=== PATIENT | female | born 1970 | race Hispanic/Latino ===

== ENCOUNTER 2016-11-15 12:10 | Emergency (ER) | payer BC, SELFPAY ==
[2016-11-15 12:46] LABS: #Eosinphils 0.1 thou/uL (0.0-0.7); #Lymphocytes 2.4 thou/uL (1.20-3.40); #Monocytes 0.6 thou/uL (0.11-0.59); #Neutrophils 5.9 thou/uL (1.40-6.50); %Basophils 0.3 % (0.0-1.0); %Eosinophils 1.2 % (0.0-10.0); %Lymphocytes 26.9 % (21.0-51.0); %Monocytes 6.4 % (0.0-10.0); Hematocrit 43.8 % (36.0-47.0); Mean Platelet Volume 6.6 fL (7.4-10.4); Red Blood Cell (RBC) Count 4.77 mill/uL (4.20-5.40); White Blood Cell (WBC) Count 9.1 thou/uL (4.8-10.8)
[2016-11-15] MEDS ORDERED: Ondansetron HCl/PF 4 MG/2 ML Vial ONE (12:55)
[2016-11-15 13:13] LABS: ALT (SGPT) 44 U/L (8-55); AST (SGOT) 30 U/L (5-34); Alkaline Phosphatase 178 U/L (40-150); Anion Gap 14 mmol/L (10-20); BUN (Urea Nitrogen) 13 mg/dL (7.0-18.7); Bilirubin, Total 0.5 mg/dL (0.2-1.2); CK (CPK) 55 U/L (29-168); Calc. Creatinine Clearance 0 mL/min (70-130); Calcium 9.8 mg/dL (7.8-10.44); Carbon Dioxide 20 mmol/L (22-29); Chloride 105 mmol/L (98-107); Estimated GFR-MDRD 84; Globulin 4.4 g/dL (2.4-3.5); Lipase 26 U/L (8-78); Protein, Total 8.4 g/dL (6.0-8.3)
== END 2016-11-15 13:43 | disposition home or self-care (01) ==
LOC: ERS 12:10
DX: K52.9 Noninfective gastroenteritis and colitis, unspecified (principal); E86.0 Dehydration; J45.909 Unspecified asthma, uncomplicated
CPT/HCPCS: 36415; 80053; 82550; 83690; 85025; 96361; 96374; J2405

== ENCOUNTER 2017-03-13 19:28 | Emergency (ER) | payer BC ==
--- NOTE | 2017-03-13 21:58 | RAD ---
TWO VIEWS CHEST 03/13/17 PROVIDED CLINICAL HISTORY: Cough. FINDINGS: Comparison 03/10/08. The cardiac and mediastinal silhouette is within normal limits. No focal consolidation, pleural fluid or pneumothorax apparent. IMPRESSION: No evidence for an acute cardiopulmonary process. POS: [facility]
== END 2017-03-13 21:57 | disposition home or self-care (01) ==
LOC: ERS 19:28
DX: J06.9 Acute upper respiratory infection, unspecified (principal); J45.909 Unspecified asthma, uncomplicated; F17.210 Nicotine dependence, cigarettes, uncomplicated
CPT/HCPCS: 71046; 94640; J7620

== ENCOUNTER 2017-06-27 23:22 | Emergency (ER) | payer BC ==
[2017-06-27] MEDS ORDERED: Ondansetron ODT 4 MG TAB ONE (23:57)
[2017-06-28] MEDS ORDERED: Azithromycin 250 MG TAB ONE (00:18)
== END 2017-06-28 00:35 | disposition home or self-care (01) ==
LOC: ERS 23:22
DX: R11.2 Nausea with vomiting, unspecified (principal); R19.7 Diarrhea, unspecified; J45.909 Unspecified asthma, uncomplicated; F17.210 Nicotine dependence, cigarettes, uncomplicated; Z79.899 Other long term (current) drug therapy
CPT/HCPCS: 99283; Q0162

== ENCOUNTER 2018-04-19 09:47 | Observation (INO) | payer BC ==
[2018-04-19 10:31] LABS: #Eosinphils 0.1 thou/uL (0.0-0.7); #Lymphocytes 2.7 thou/uL (1.20-3.40); #Monocytes 0.3 thou/uL (0.11-0.59); #Neutrophils 4.3 thou/uL (1.40-6.50); %Basophils 0.3 % (0.0-1.0); %Eosinophils 1.4 % (0.0-10.0); %Lymphocytes 35.8 % (21.0-51.0); %Monocytes 4.4 % (0.0-10.0); %Neutrophils 58.1 % (42.0-75.0); Hemoglobin 13.4 g/dL (12.0-16.0); Mean Corpuscular HGB CONC 33.9 g/dL (32.0-36.0); Mean Corpuscular Hemoglobin 29.9 pg (27.0-31.0); Mean Corpuscular Volume 88.3 fL (78.0-98.0); Mean Platelet Volume 7.9 fL (7.4-10.4); Platelet Count 256 thou/uL (130-400); Red Blood Cell (RBC) Count 4.47 mill/uL (4.20-5.40); White Blood Cell (WBC) Count 7.4 thou/uL (4.8-10.8)
[2018-04-19 10:59] LABS: ALT (SGPT) 21 U/L (8-55); AST (SGOT) 27 U/L (5-34); Albumin 3.5 g/dL (3.5-5.0); Alkaline Phosphatase 91 U/L (40-150); Anion Gap 15 mmol/L (10-20); BUN (Urea Nitrogen) 16 mg/dL (7.0-18.7); Bilirubin, Total 0.2 mg/dL (0.2-1.2); Calc. Creatinine Clearance 0 mL/min (70-130); Calcium 8.8 mg/dL (7.8-10.44); Carbon Dioxide 18 mmol/L (22-29); Chloride 110 mmol/L (98-107); Estimated GFR-MDRD Greater than 90; Globulin 3.3 g/dL (2.4-3.5); Glucose 107 mg/dL (70-105); Potassium 4.6 mmol/L (3.5-5.1); Protein, Total 6.8 g/dL (6.0-8.3); Sodium 138 mmol/L (136-145)
[2018-04-19] MEDS ORDERED: Aspirin 325 MG TAB ONE (11:01)
[2018-04-19] MEDS ORDERED: Nitroglycerin 0.4 MG TAB 1 EACH ONE (11:01)
--- NOTE | 2018-04-19 11:01 | RAD ---
PORTABLE CHEST: Date: 04/19/18 HISTORY: Chest pain and pressure. FINDINGS: Lungs appear clear. No infiltrate or vascular congestion. Heart and mediastinum unremarkable. IMPRESSION: No acute findings. POS: [facility]
[2018-04-19] MEDS ORDERED: Acetaminophen 500 MG TAB ONE (12:40)
[2018-04-19] MEDS ORDERED: Enoxaparin Sodium 40 MG/0.4 ML SYRINGE SC SCH (15:00)
[2018-04-19 15:26] LABS: Troponin I Less than 0.010 ng/mL (< 0.028)
[2018-04-19 15:46] LABS: Hemoglobin A1c 5.7 % (4.0-6.0)
[2018-04-19] MEDS ORDERED: Nitroglycerin 0.4 MG TAB (25 Tab Bottle) SL PRN (17:31)
[2018-04-19] MEDS ORDERED: Acetaminophen 500 MG TAB PO PRN (17:31)
[2018-04-19] MEDS ORDERED: Ondansetron PF 4 MG/2 ML Vial IVP PRN (17:31)
[2018-04-19] MEDS ORDERED: HumaLOG 300 UNITS/3 ML VIAL SC PRN (17:33)
[2018-04-19] MEDS ORDERED: Dextrose 5% in Water 1,000 ML IV PRN (17:33)
[2018-04-19] MEDS ORDERED: Dextrose 50% Abboject 50 ML SYRINGE SLOW IVP PRN (17:33)
[2018-04-19 17:58] VITALS: BMI 30.7
[2018-04-19 18:42] LABS: Troponin I Less than 0.010 ng/mL (< 0.028)
[2018-04-19] MEDS: Pregabalin 75 MG CAP PO SCH (19:48)
[2018-04-19] MEDS: Pregabalin 50 MG CAP PO SCH (19:49)
--- NOTE | 2018-04-19 21:56 | HP ---
CHIEF COMPLAINT: Chest pressure. HISTORY OF PRESENT ILLNESS: The patient is a pleasant 47-year-old female with past medical history significant for type 2 diabetes mellitus, hyperlipidemia, peripheral neuropathy, tobacco abuse with one half pack per day smoking habit, and family history of coronary artery disease, who presented to the hospital with complaints of chest pressure that began earlier today when she was at work. The patient works at [employer], and was weighing 10-pound bags of chicken when her chest pressure began. She describes the sensation as a "sandbag sitting on my chest." She did have some associated shortness of breath, but denies any nausea, diaphoresis, dizziness, or palpitations. The pressure did not subside, and so she went to the emergency room for further workup and evaluation. On arrival, the patient was given sublingual nitroglycerin, which did relive her chest discomfort. Her EKG showed normal sinus rhythm. No ischemic ST or T-wave changes, and ventricular rate of 79 beats per minute. Her chest x-ray shows no infiltrate or vascular congestion, heart and mediastinum unremarkable. She is currently resting comfortably in the ER. She has had no prior cardiac workup up until this point. PAST MEDICAL HISTORY: As mentioned, type 2 diabetes mellitus, hyperlipidemia, and peripheral neuropathy. PAST SURGICAL HISTORY: Cholecystectomy, partial hysterectomy, and tubal ligation. ALLERGIES: STADOL AND VISTARIL. HOME MEDICATIONS: 1. 300 mg capsule Lyrica, one capsule p.o. b.i.d. 2. Lyrica 50 mg capsule, one capsule p.o. b.i.d. 3. Metformin extended release 500 mg tablet one p.o. b.i.d. 4. Flonase 50 mcg nasal spray one daily. 5. Zyrtec 10 mg capsule one per day. 6. Zofran ODT 4 mg orally 1 to 2 tablets every 6 hours p.r.n. SOCIAL HISTORY: The patient smokes one half pack per day of cigarettes. She denies any alcohol or illicit drug use. She has 2 grown children and grandchildren who live nearby. She works at [employer]. FAMILY HISTORY: Positive for triple bypass surgery in her father. CODE STATUS: Full code. REVIEW OF SYSTEMS: CONSTITUTIONAL: Negative for fever, chills, and weight loss. EYES: Negative for injury, pain, redness, and discharge. ENT: Positive for rhinorrhea. Negative for cough. NECK: Negative for lymphadenopathy. CARDIOVASCULAR: As above. Positive for chest pain. Negative for palpitations, dizziness. RESPIRATORY: Negative for chronic cough or wheezing. ABDOMEN/GASTROINTESTINAL: Negative for abdominal pain, nausea, vomiting, diarrhea, or constipation. Negative for any blood in the stool. BACK: Negative for injury and pain. SKIN: Negative for rash. EXTREMITIES: Negative for any swelling. Positive for neuropathy. PHYSICAL EXAMINATION: VITAL SIGNS: Blood pressure 110/72, pulse equals 90, respirations 17, temperature 98.4, and O2 saturation 99% on room air. GENERAL: This is a woman who appears her stated age, resting comfortably in the ER, currently in no acute distress. HEAD AND FACE: Normocephalic and atraumatic. ENT: Positive for poor dentition. No nasal discharge. Mucous membranes are moist. NECK: No JVD. No carotid bruits. No lymphadenopathy. RESPIRATORY: Regular respiratory rate and pattern. Overall, clear to auscultation bilaterally. CARDIOVASCULAR: S1 and S2. Regular rate and rhythm. No appreciable murmurs, rubs, or gallops. ABDOMEN: Soft and nontender. Normal bowel sounds. SKIN: Warm and dry without evidence of any rash. NEUROLOGIC: Nonfocal. LABORATORY DATA: Hemoglobin 13.4, hematocrit 39.5, white blood cell 7.4. Sodium 138, chloride 110, potassium 4.6. BUN 16, creatinine 0.68, and glucose 107. LFTs within normal limits. First troponin is negative. ASSESSMENT: 1. Chest pain, concerning for angina in a patient with numerous risk factors including hyperlipidemia, type 2 diabetes mellitus, family history, and tobacco abuse. 2. Type 2 diabetes mellitus. 3. Hyperlipidemia. 4. Diabetic peripheral neuropathy. 5. Tobacco abuse. PLAN: Given the patient's risk factors and her HEART score of 4, we will admit for observation and ACS rule out. We will perform Cardiolite stress test in-house. We will obtain fasting lipid panel in the morning. We will also obtain an A1c. We will start baby aspirin 81 mg daily. Further recommendations based on hospital course. Job ID: [id number]
[2018-04-20] MEDS: Pregabalin 75 MG CAP PO SCH (08:08)
[2018-04-20] MEDS: Pregabalin 50 MG CAP PO SCH (08:09)
[2018-04-20] MEDS ORDERED: Aspirin 81 mg Enteric Coated Tablet PO SCH (09:00)
[2018-04-20] MEDS ORDERED: Regadenoson 0.4 MG/5 ML SYRINGE ONE (10:19)
[2018-04-20 11:51] VITALS: TEMP 97.9
[2018-04-20 16:42] VITALS: BP 111/63
--- NOTE | 2018-04-20 18:11 | NM ---
RADIONUCLIDE STRESS AND REST MYOCARDIAL PERFUSION SCAN WITH CT ATTENUATION CORRECTION AND SPECT IMAGI NG LEFT VENTRICULAR WALL MOTION EVALUATION AND EJECTION FRACTION 04/20/18 HISTORY: Chest pain. FINDINGS: Micheal protocol. Total test time 7:07. Maximum heart rate 116 beats per minute. Heterogeneous uptake of radiotracer throughout the left ventricular myocardium. No focal perfusion de fect or reversibility. QGS analysis of gated SPECT images shows no focal wall motion abnormalities. TID 1.03. LHR 49%. Left ventricular ejection fraction calculated at 76%. IMPRESSION: Normal myocardial perfusion scan. Normal LVEF. POS: [facility]
--- NOTE | 2018-04-21 01:55 | DIS ---
DATE OF ADMISSION: 04/19/2018 DATE OF DISCHARGE: 04/20/2018 ALLERGIES: BUTORPHANOL, HYDROXYZINE. CHIEF COMPLAINT: Chest pain. FINAL DIAGNOSES: 1. Chest pain, resolved, acute coronary syndrome ruled out, stress test negative for reversible ischemia 2. type 2 diabetes mellitus 3. hyperlipidemia/ hypertryglyceridemia 4. diabetic peripheral neuropathy. 5. Tobacco abuse LABORATORY DATA: Lab results: White blood cell count 7.4, RBC 4.47, hemoglobin 13.4, hematocrit 39.5, platelets 256. Sodium 138, potassium 4.6, BUN 16, creatinine 0.68, glucose 107, hemoglobin A1c 5.7, AST 27, ALT 21, alkaline phosphatase 91. Troponin negative x2. Triglycerides 239. Cholesterol 181, LDL 103, HDL 30. IMAGING RESULTS: Chest x-ray, lungs appear clear. No infiltrate or vascular congestion. No acute findings. Myocardial perfusion imaging study shows normal myocardial perfusion scan with normal left ventricular systolic function. No wall motion abnormalities. EKG normal sinus rhythm. No ischemic ST or T-wave changes. Ventricular rate of 79 beats per minute. CONSULTATIONS: None. VITAL SIGNS: Blood pressure 111/63, pulse 77, O2 saturation 96% on room air. HOSPITAL COURSE: The patient is a pleasant 47-year-old female with past medical history significant for type 2 diabetes mellitus, hyperlipidemia, peripheral neuropathy and tobacco abuse, who presented with complaints of chest pressure that began while she was working. She had some associated shortness of breath, but no other associated symptoms. She came to the ER for further workup and treatment. Her chest pain was improved with sublingual nitroglycerin. Her heart score in the ER was 4. She was admitted for chest pain rule out, as well as nuclear stress test. Her cardiac enzymes were negative. Her MPI showed no evidence of reversible ischemia and normal EF. Her chest pain has resolved. While she was here, she had no further episodes. She has ambulated without issues. She has no complaints to me today. PHYSICAL EXAMINATION: GENERAL: Awake, alert, well appearing, no acute distress. HEENT: Head, normocephalic, atraumatic. ENT: Positive for poor dentition. No nasal discharge. Mucous membranes are moist. NECK: No JVD. No carotid bruits. No lymphadenopathy. RESPIRATORY: Regular respiratory rate and pattern, overall clear to auscultation bilaterally. CARDIOVASCULAR: S1 and S2. Regular rate and rhythm. No appreciable murmurs, rubs, or gallops. ABDOMEN: Soft, nontender. Normal bowel sounds. SKIN: Warm and dry without evidence of rash. NEUROLOGIC: Nonfocal. CONDITION AT DISCHARGE: Stable. DISCHARGE MEDICATIONS: 1. 300 mg capsule Lyrica one p.o. b.i.d. 2. 50 mg capsule Lyrica one p.o. b.i.d. 3. Metformin extended release 500 mg tablet one p.o. b.i.d. 4. Flonase 50 mcg nasal spray one daily. 5. Zyrtec 10 mg capsule one per day. 6. Zofran ODT 4 mg orally 1-2 tablets every 6 hours p.r.n. 7. Aspirin 81 mg daily. 8. New medication will be fish oil 1000 mg two caplets a.m. and two p.m. DISCHARGE DISPOSITION: Home. PLAN: The patient will be discharged today. As mentioned, her stress test was negative and she has had no repeat chest discomfort. I have counseled her heavily on aggressive risk factor modification including tobacco cessation, as well as exercise and tight control of her diabetes. The patient is unable to take statin medications secondary to myalgias. She will follow up with her primary care physician, Dr. Rodriguez. Job ID: [id number] [facility]
--- NOTE | 2018-04-22 13:33 | STRESS ---
Acquisition Time: 2018-04-20 15:15:26 Total Exercise Time: 00:07:07 Test Indications: CHEST PAIN Medications: Protocol: POWER Max HR: 116 BPM 67% of Pred: 172 BPM Max BP: 112/076 mmHG Max Work Load: 10.1 METS RESTING ECG: NORMAL SINUS RHYTHM AT 67 BPM SYMPTOMS: DYSPNEA ON EXERTION, NAUSEA NORMAL BLOOD PRESSURE RESPONSE ECTOPY: NONE ECG RESPONSE: NO SIGNIFICANT CHANGES INTERPRETATION: AWAIT NUCLEAR IMAGES FOR DEFINITIVE DIAGNOSIS COMMENTS: EXERCISED 7 MIN. STOPPED DUE TO SOB. HR AT 112 BPM. CONVERTED TO LEXISCAN CARDIOLITE Confirmed by HUNTER RUBIN ([id number]), publishing editor MELL PENN ([id number] on 04/22/2018 1:32:55 PM Referred By: Jeaneth VICENTE Confirmed By:HUNTER RUBIN
--- NOTE | 2018-04-27 22:53 | EKG ---
Test Reason : Blood Pressure : / mmHG Vent. Rate : 079 BPM Atrial Rate : 079 BPM P-R Int : 132 ms QRS Dur : 078 ms QT Int : 376 ms P-R-T Axes : 045 046 023 degrees QTc Int : 431 ms Normal sinus rhythm Normal ECG Confirmed by NINA GARCIA [id number]), art editor MOY SKAGGS ([id number]) on 04/27/2018 10:52:45 PM Referred By: Confirmed By:NINA GARCIA
== END 2018-04-20 19:36 | disposition home or self-care (01) ==
LOC: ERS 09:47 → 2SW 17:37
PROVIDERS: ADMIT Internal Medicine; ATTEND Internal Medicine
DX: R07.89 Other chest pain (principal); E11.42 Type 2 diabetes mellitus with diabetic polyneuropathy; E78.1 Pure hyperglyceridemia; F17.210 Nicotine dependence, cigarettes, uncomplicated; Z79.82 Long term (current) use of aspirin; Z79.84 Long term (current) use of oral hypoglycemic drugs; Z79.899 Other long term (current) drug therapy; Z88.8 Allergy status to other drugs, medicaments and biological substances
CPT/HCPCS: 36415; 36416; 71045; 78452; 80053; 80061; 83036; 84484; 85025; 90471; 90686; 90732; 93005; 93017; A9500; G0008; G0009; G0378; J2785

== ENCOUNTER 2018-09-27 20:56 | Emergency (ER) | payer BC, SELFPAY ==
[2018-09-27] MEDS ORDERED: Lidocaine 1% PF 5 ML VIAL ONE (21:08)
[2018-09-27] MEDS ORDERED: Cephalexin 250 MG CAP ONE (21:51)
== END 2018-09-27 21:58 | disposition home or self-care (01) ==
LOC: ERS 20:56
DX: L60.0 Ingrowing nail (principal); I88.9 Nonspecific lymphadenitis, unspecified; E11.40 Type 2 diabetes mellitus with diabetic neuropathy, unspecified; J45.909 Unspecified asthma, uncomplicated; F17.210 Nicotine dependence, cigarettes, uncomplicated; Z79.84 Long term (current) use of oral hypoglycemic drugs; Z79.899 Other long term (current) drug therapy
CPT/HCPCS: 11750; J2001

== ENCOUNTER 2020-02-13 20:59 | Emergency (ER) | payer SELFPAY ==
--- NOTE | 2020-02-13 21:35 | RAD ---
RADIOGRAPH CHEST 1 VIEW: DATE: 02/13/2020 HISTORY: 49-year-old female with chest pain FINDINGS: There are no airspace densities, pulmonary edema, pneumothorax, or cardiomegaly. The lateral costophr enic angles are sharp. IMPRESSION: No acute cardiopulmonary findings.
[2020-02-13 21:49] LABS: Mean Corpuscular HGB CONC 34.5 g/dL (32.0-36.0); Mean Corpuscular Hemoglobin 30.4 pg (27.0-31.0); Mean Corpuscular Volume 88.1 fL (78.0-98.0); Mean Platelet Volume 8.6 fL (7.4-10.4); Platelet Count 172 thou/uL (130-400); RBC Distribution Width 11.1 % (11.5-14.5); Red Blood Cell (RBC) Count 4.29 mill/uL (4.20-5.40)
[2020-02-13] MEDS ORDERED: Aspirin Chewable 81 MG TAB ONE (22:00)
[2020-02-13 22:03] LABS: Band 2 % (5-11); Eosinophils 2 % (0-10); Lymphocytes 39 % (21-51); MDiff Complete? YES; Monocytes 6 % (0-10); Neutrophil 51 % (42-75); Platelet Morphology Comment Appears Adequate
[2020-02-13 22:47] LABS: Albumin 3.8 g/dL (3.5-5.0)
[2020-02-13 22:48] LABS: Chloride 107 mmol/L (98-107); Potassium 3.7 mmol/L (3.5-5.1); Sodium 137 mmol/L (136-145)
[2020-02-13 22:49] LABS: Calcium 9.3 mg/dL (7.8-10.44); Glucose 150 mg/dL (70-105)
[2020-02-13 22:50] LABS: Globulin 4.6 g/dL (2.4-3.5); Protein, Total 8.4 g/dL (6.0-8.3)
[2020-02-13 22:51] LABS: Anion Gap 10 mmol/L (10-20); Bilirubin, Total 0.3 mg/dL (0.2-1.2); Carbon Dioxide 24 mmol/L (22-29)
[2020-02-13 22:52] LABS: Alkaline Phosphatase 123 U/L (40-110)
[2020-02-13 22:53] LABS: BUN (Urea Nitrogen) 17 mg/dL (7.0-18.7); Calc. Creatinine Clearance 0 mL/min (70-130)
[2020-02-13 22:54] LABS: AST (SGOT) 17 U/L (5-34)
[2020-02-13] MEDS ORDERED: Ketorolac Tromethamine 30 MG/ML VIAL ONE (22:54)
[2020-02-13 22:55] LABS: ALT (SGPT) 15 U/L (8-55)
[2020-02-13] MEDS ORDERED: Gabapentin 300 MG CAP PO SCH (23:15)
[2020-02-14 00:07] LABS: Troponin I Less than 0.010 ng/mL (< 0.028)
== END 2020-02-14 01:07 ==
LOC: ERS 20:59
DX: R07.89 Other chest pain (principal); E11.40 Type 2 diabetes mellitus with diabetic neuropathy, unspecified; J45.909 Unspecified asthma, uncomplicated; F17.210 Nicotine dependence, cigarettes, uncomplicated; Z79.899 Other long term (current) drug therapy
CPT/HCPCS: 36415; 71045; 80053; 84484; 85025; 93005; 96374; J1885

== ENCOUNTER 2022-01-19 08:25 | Outpatient (CLI) | payer OTHER | END 2022-01-19 08:26 | disposition home or self-care (01) | LOC: RAD 08:25 | PROVIDERS: ATTEND Internal Medicine Critical Care Medicine | DX: R06.00 Dyspnea, unspecified (principal) | CPT/HCPCS: 71046 ==